=== PATIENT | female | born 1990 | race Caucasian/White ===

== ENCOUNTER 2018-09-04 20:35 | Emergency (ER) | payer OTHER ==
[2018-09-04] MEDS ORDERED: Tetracaine 0.5% OPHTH SOLN/PF 4 ML BOT ONE (20:43)
[2018-09-04] MEDS ORDERED: Erythromycin Base 0.5% Ophth Oint 3.5 gm Tube ONE (21:00)
[2018-09-04] MEDS ORDERED: traMADol HCl 50 MG TAB ONE (21:00)
[2018-09-04] MEDS ORDERED: Tobramycin Sulfate 0.3% Ophth Susp 5 ml Bottle ONE (21:07)
== END 2018-09-04 21:31 | disposition home or self-care (01) ==
LOC: MADERS 20:35
DX: S05.01XA Injury of conjunctiva and corneal abrasion without foreign body, right eye, initial encounter (principal); W22.8XXA Striking against or struck by other objects, initial encounter
CPT/HCPCS: 99283